=== PATIENT | male | born 1980 | race Caucasian/White ===

== ENCOUNTER 2016-11-07 14:05 | Observation (INO) | payer OTHER ==
[~2016-11-07] VITALS: Ht 182.9 cm; Wt 99.5 kg
[~2016-11-07 14:05] MED LIST: LACTATED RINGER'S 1000 ML INJ 1,000 ML IV ONE; ONDANSETRON HCL 4 MG/2 ML VIAL IV PUSH ONE; PROPOFOL 200 MG/20 ML AMP IV ONE
[2016-11-07 14:14] VITALS: BP 160/93; PULSE 72; RESP 18; TEMP 98.5; O2SAT 97
--- NOTE | 2016-11-07 15:08 | PD ---
HPI Chief Complaint: Laceration/Skin Injury Time Seen by Provider: 15:04 Travel History International Travel<30 days: No Contact w/Intl Traveler<30days: No Traveled to known affect area: No History of Present Illness HPI 35-year-old male presents to the emergency department complaint of a laceration to his right index finger. Laceration was obtained from a clean knife right out of the box. He is not up-to-date on his tetanus vaccination. Reports paresthesias to the right second digit. Denies loss of sensation. Reports decreased range of motion; Says he cannot move his finger at all. Has not taken any medications or tried any treatments to alleviate his symptoms. Applied pressure to control bleeding. Denies fever, chills, nausea, vomiting. Denies significant past medical history. Allergies to cortisone. No other modifying factors or associated signs and symptoms. PFSH Past Medical History Medical History: Denies Significant Hx Tetanus Vaccination: Unknown Influenza Vaccination: No Past Surgical History Surgical History: No Previous Surgery Social History Alcohol Use: Yes (WEEKENDS) Tobacco Use: No Substance Use: No Allergies-Medications (Allergen,Severity, Reaction): Coded Allergies: Cortisone (Verified Adverse Reaction, Severe, SWELLING, 11/07/16) Reported Meds & Prescriptions Reported Meds & Active Scripts Active No Active Prescriptions or Reported Medications Review of Systems Except as stated in HPI: all other systems reviewed are Neg Physical Exam Narrative GENERAL: Well-nourished, well-developed male patient, in no acute distress SKIN: Warm and dry. Approximately 1.5 cm laceration to the lateral aspect of the left second digit just above the MCP joint; finger without active range of motion; without opposition; less than 3 second cap refill; finger pink and warm to touch; sensory intact. Left upper extremity is supple and non-tense with 2+ radial pulses and sensory intact and without erythema or edema. HEAD: Atraumatic. Normocephalic. EYES: Pupils equal and round. No scleral icterus. No injection or drainage. ENT: Mucosa pink and moist. Airway patent. NECK: Trachea midline. CARDIOVASCULAR: Regular rate. RESPIRATORY: No accessory muscle use. GASTROINTESTINAL: Flat. MUSCULOSKELETAL: No obvious deformities. No clubbing. No cyanosis. No edema. NEUROLOGICAL: Awake and alert. Oriented 3. No obvious cranial nerve deficits. Motor grossly within normal limits. Normal speech. PSYCHIATRIC: Appropriate mood and affect; insight and judgment normal. Data Data Last Documented VS Vital Signs Date Time Temp Pulse Resp B/P Pulse Ox O2 Delivery O2 Flow Rate FiO2 11/07/16 17:01 65 18 154/83 100 Room Air 11/07/16 14:14 98.5 Orders Finger ([id number]) (11/07/16 ) Bupivacaine Pf 0.5% Inj (Marcaine Pf 0.5 (11/07/16 15:15) Lidocaine 1% Inj (50 Ml) (Xylocaine 1% I (11/07/16 15:15) Tetanus/Diphtheria Tox Adult (Tetanus/Di (11/07/16 15:15) Basic Metabolic Panel (Bmp) (11/07/16 16:45) Complete Blood Count With Diff (11/07/16 16:45) Iv Access Insert/Monitor (11/07/16 16:45) NPO (11/07/16 16:45) Chest, Single Ap (11/07/16 16:45) Consult Hand Surgery (11/07/16 ) Sodium Chlor 0.9% 1000 Ml Inj (Ns 1000 M (11/07/16 16:54) Admit Order (Ed Use Only) (11/07/16 17:01) Labs Laboratory Tests Test 11/07/16 16:50 White Blood Count 7.9 TH/MM3 Red Blood Count 4.85 MIL/MM3 Hemoglobin 14.8 GM/DL Hematocrit 44.0 % Mean Corpuscular Volume 90.6 FL Mean Corpuscular Hemoglobin 30.4 PG Mean Corpuscular Hemoglobin 33.6 % Concent Red Cell Distribution Width 12.3 % Platelet Count 205 TH/MM3 Mean Platelet Volume 9.1 FL Neutrophils (%) (Auto) 81.0 % Lymphocytes (%) (Auto) 11.8 % Monocytes (%) (Auto) 6.1 % Eosinophils (%) (Auto) 0.6 % Basophils (%) (Auto) 0.5 % Neutrophils # (Auto) 6.4 TH/MM3 Lymphocytes # (Auto) 0.9 TH/MM3 Monocytes # (Auto) 0.5 TH/MM3 Eosinophils # (Auto) 0.0 TH/MM3 Basophils # (Auto) 0.0 TH/MM3 CBC Comment DIFF FINAL Differential Comment Sodium Level 142 MEQ/L Potassium Level 4.1 MEQ/L Chloride Level 106 MEQ/L Carbon Dioxide Level 27.3 MEQ/L Anion Gap 9 MEQ/L Blood Urea Nitrogen 18 MG/DL Creatinine 0.98 MG/DL Estimat Glomerular Filtration 88 ML/MIN Rate Random Glucose 95 MG/DL Calcium Level 8.9 MG/DL [facility] Medical Decision Making Medical Screen Exam Complete: Yes Emergency Medical Condition: Yes Medical Record Reviewed: Yes Differential Diagnosis Laceration, contusion, abrasion Narrative Course 35-year-old male with left second digit laceration just above the MCP joint obtained from a clean knife. Tetanus updated in the ER. The fingers without active range of motion or opposition. Left second finger x-ray ordered. 1623: Left second finger x-ray with no acute findings. Call placed to hand surgeon. 1645: I spoke with Dr. Sawyer, hand surgeon, and she recommended for the patient to be transferred to the main hospital for OR secondary to possible flexor tendon laceration. CBC, BMP ordered. Chest x-ray for preop ordered. IV started with normal saline at KVO ordered. Patient will be transferred to the main hospital. 1702: I spoke with Dr. Beckham and the patient will be admitted to Dr. Rao. Report given. Physician Communication Physician Communication Dr. Sawyer, hand surgeon Dr. Beckham, [facility] Diagnosis Primary Impression: Laceration of left index finger with complication Admitting Information Admitting Physician Requests: Observation Scripts No Active Prescriptions or Reported Meds Yumiko Crow Nov 07, 2016 15:08 Yumiko Crow Nov 07, 2016 15:08
[2016-11-07] MEDS ORDERED: TETANUS/DIPHTHERIA TOXOID ADULT 0.5 ML VIAL IM ONE (15:15)
[2016-11-07] MEDS ORDERED: BUPIVACAINE HCL PF 0.5% 10 ML VIAL INFIL ONE (15:15)
[2016-11-07] MEDS ORDERED: LIDOCAINE HCL 1% 50 ML VIAL INFIL ONE (15:15)
--- NOTE | 2016-11-07 16:16 | RADHPO ---
EXAM DATE/TIME: 11/07/2016 15:47 [facility] COMPARISON: No previous studies available for comparison. INDICATIONS : Injury to hand from knife. MEDICAL HISTORY : None. SURGICAL HISTORY : None. ENCOUNTER: Initial ACUITY: 1 day PAIN SCORE: 5/10 LOCATION: Right base of second digit. FINDINGS: Soft tissue swelling with a few scattered bubbles of gas seen of the pointer finger and second webspa ce. No radiopaque foreign body. Bones are intact and normally aligned. CONCLUSION: Soft tissue injury. No bony abnormality demonstrated. Eugenio Haro MD on November 07, 2016 at 16:14 Board Certified Radiologist. This report was verified electronically.
[2016-11-07] MEDS: SODIUM CHLOR 0.9% 1000 ML INJ 1,000 ML IV SCH (16:54)
[2016-11-07 17:01] VITALS: BP 154/83; PULSE 65; RESP 18; O2SAT 100
[2016-11-07 17:06] LABS: AUTOMATED NEUTROPHIL # 6.4 TH/MM3 (1.8-7.7); BASOPHIL % 0.5 % (0.0-2.0); EOSINOPHIL % 0.6 % (0.0-4.0); HEMO FLAGS DIFF FINAL; LYMPH % 11.8 % (9.0-44.0); LYMPHOCYTE # 0.9 TH/MM3 (1.0-4.8); MEAN CELL VOLUME 90.6 FL (80.0-100.0); MEAN CORPUSCULAR HEMOGLOBIN 30.4 PG (27.0-34.0); MEAN CORPUSCULAR HGB CONC 33.6 % (32.0-36.0); MONO % 6.1 % (0.0-8.0); PLATELET COUNT 205 TH/MM3 (150-450); RED BLOOD COUNT 4.85 MIL/MM3 (4.50-5.90); RED CELL DISTRIBUTION WIDTH 12.3 % (11.6-17.2); WHITE BLOOD COUNT 7.9 TH/MM3 (4.0-11.0)
[2016-11-07 17:14] LABS: POTASSIUM 4.1 MEQ/L (3.5-5.1)
[2016-11-07 17:17] LABS: BICARBONATE 27.3 MEQ/L (21.0-32.0)
--- NOTE | 2016-11-07 17:25 | HHI.HP ---
HPI Service CP Hospitalists Primary Care Physician No Primary Care Physician Admission Diagnosis LEFT INDEX FINGER LACERATION Chief Complaint: left finger laceration from knife Travel History International Travel<30 Days: No Contact w/Intl Traveler <30 Da: No Traveled to Known Affected Are: No History of Present Illness 35-year-old male with left second digit laceration just above the MCP joint obtained from a clean knife. Tetanus updated in the ER. The fingers without active range of motion or opposition. Orthopedic hand wants patient to OR tonight for possible flexor tendon rupture. Patient has no significant past medical history. Review of Systems Musculoskeletal: COMPLAINS OF: Joint pain Past Family Social History Past Medical History none Past Surgical History none Reported Medications none Allergies: Coded Allergies: Cortisone (Verified Adverse Reaction, Severe, SWELLING, 11/07/16) Family History grandfather hypertension Social History NS,ND Physical Exam Vital Signs Vital Signs Date Time Temp Pulse Resp B/P Pulse Ox O2 Delivery O2 Flow Rate FiO2 11/07/16 17:01 65 18 154/83 100 Room Air 11/07/16 14:14 98.5 72 18 160/93 97 Physical Exam GENERAL: This is a well-nourished, well-developed patient, in no apparent distress. SKIN: No rashes, ecchymoses or lesions. Cool and dry. HEAD: Atraumatic. Normocephalic. No temporal or scalp tenderness. EYES: Pupils equal round and reactive. Extraocular motions intact. No scleral icterus. No injection or drainage. ENT: Nose without bleeding, purulent drainage or septal hematoma. Throat without erythema, tonsillar hypertrophy or exudate. Uvula midline. Airway patent. NECK: Trachea midline. No JVD or lymphadenopathy. Supple, nontender, no meningeal signs. CARDIOVASCULAR: Regular rate and rhythm without murmurs, gallops, or rubs. RESPIRATORY: Clear to auscultation. Breath sounds equal bilaterally. No wheezes , rales, or rhonchi. GASTROINTESTINAL: Abdomen soft, non-tender, nondistended. No hepato-splenomegaly , or palpable masses. No guarding. MUSCULOSKELETAL: Extremities without clubbing, cyanosis, or edema.. No joint tenderness, effusion, or edema noted. NEUROLOGICAL: Awake and alert. Cranial nerves II through XII intact. Motor and sensory grossly within normal limits. Five out of 5 muscle strength in all muscle groups. Normal speech. left hand- Approximately 1.5 cm laceration to the lateral aspect of the left second digit just above the MCP joint; finger without active range of motion; without opposition; less than 3 second cap refill; sensory intact. Left upper extremity is supple and non-tense with 2+ radial pulses and sensory intact and without erythema or edema Laboratory Laboratory Tests Test 11/07/16 16:50 White Blood Count 7.9 Red Blood Count 4.85 Hemoglobin 14.8 Hematocrit 44.0 Mean Corpuscular Volume 90.6 Mean Corpuscular Hemoglobin 30.4 Mean Corpuscular Hemoglobin 33.6 Concent Red Cell Distribution Width 12.3 Platelet Count 205 Mean Platelet Volume 9.1 Neutrophils (%) (Auto) 81.0 Lymphocytes (%) (Auto) 11.8 Monocytes (%) (Auto) 6.1 Eosinophils (%) (Auto) 0.6 Basophils (%) (Auto) 0.5 Neutrophils # (Auto) 6.4 Lymphocytes # (Auto) 0.9 Monocytes # (Auto) 0.5 Eosinophils # (Auto) 0.0 Basophils # (Auto) 0.0 CBC Comment DIFF FINAL Differential Comment Sodium Level 142 Potassium Level 4.1 Chloride Level 106 Carbon Dioxide Level 27.3 Anion Gap 9 Blood Urea Nitrogen 18 Random Glucose 95 Calcium Level 8.9 Result Diagram: 11/07/16 1650 11/07/161649 Assessment and Plan Problem List: (1) Laceration of left index finger with complication Status: Acute Plan: to or with plan as per orthopedic hand surgeon Assessment and Plan as above Code Status full Discussed Condition With patient Cristofer Beckham MD Nov 07, 2016 17:25
[2016-11-07] MEDS ORDERED: ceFAZolin 2 GM PREMIX 50 ML IV ONE (17:30)
[2016-11-07] MEDS ORDERED: ONDANSETRON HCL 4 MG/2 ML VIAL IVP PRN (17:30)
[2016-11-07] MEDS ORDERED: NALOXONE HCL 0.4 MG/ML AMP IV PRN (17:30)
[2016-11-07] MEDS ORDERED: SODIUM CHLORIDE 0.9% FLUSH 5 ML FLUSH FLUSH PRN (17:30)
--- NOTE | 2016-11-07 17:38 | RADHPO ---
EXAM DATE/TIME: 11/07/2016 17:24 [facility] COMPARISON: No previous studies available for comparison. INDICATIONS : Evaluate for pneumonia, pneumothorax or communicable disease. Pre-op hand surgery 11/07/2016. MEDICAL HISTORY : None. SURGICAL HISTORY : None. ENCOUNTER: Initial ACUITY: 1 day PAIN SCORE: 0/10 LOCATION: Bilateral chest FINDINGS: A single view of the chest demonstrates the lungs to be symmetrically aerated without evidence of mas s, infiltrate or effusion. The cardiomediastinal contours are unremarkable. Osseous structures are intact. CONCLUSION: No evidence of acute cardiopulmonary disease. Eugenio Haro MD on November 07, 2016 at 17:36 Board Certified Radiologist. This report was verified electronically.
[2016-11-07 17:43] VITALS: BP 152/82; PULSE 74; RESP 18; O2SAT 100
[2016-11-07 18:20] VITALS: PULSE 59
[2016-11-07] MEDS ORDERED: NEOMYCIN/POLYMYXIN 1 ML G.U. IRRIGANT IR ONE (19:13)
[2016-11-07] MEDS ORDERED: LIDOCAINE HCL 2% 50 ML VIAL INFIL ONE (19:13)
[2016-11-07] MEDS ORDERED: MIDAZOLAM HCL 2 MG/2 ML VIAL ONE (20:06)
[2016-11-07] MEDS ORDERED: fentaNYL CITRATE 250 MCG/5 ML AMP ONE ×2 (20:07→22:32)
[2016-11-07] MEDS: SODIUM CHLORIDE 0.9% FLUSH 5 ML FLUSH FLUSH SCH (21:00)
[2016-11-07] MEDS ORDERED: ceFAZolin INJ 1,000 MG VIAL IV ONE (22:25)
[2016-11-07] MEDS ORDERED: DO NOT ADM ANY ANTICOAGULANT DRUGS XX PRN (23:45)
[2016-11-08] MEDS: SODIUM CHLOR 0.9% 1000 ML INJ 1,000 ML IV SCH (00:17)
[2016-11-08 01:00] VITALS: BP 151/85; PULSE 77; RESP 18; TEMP 97.4; O2SAT 97
[2016-11-08] MEDS: HYDROmorphone HCL PF 1 MG/ML VIAL IV PRN ×4 (01:17→11:25)
--- NOTE | 2016-11-08 01:21 | PD.ORT.PN ---
Subjective Subjective Remarks pain controlled Objective Vitals Vital Signs Date Time Temp Pulse Resp B/P Pulse Ox O2 Delivery O2 Flow Rate FiO2 11/08/16 01:00 97.4 77 18 151/85 97 11/08/16 00:30 98.4 80 17 131/93 98 Nasal Cannula 3 11/08/16 00:15 74 17 148/89 97 Nasal Cannula 3 11/08/16 00:00 82 11 143/88 97 Nasal Cannula 3 11/07/16 23:45 84 10 137/79 99 Simple Mask 10 11/07/16 23:41 98.5 79 10 149/74 98 Simple Mask 10 11/07/16 18:30 61 14 143/88 97 11/07/16 18:20 59 11/07/16 18:20 98.8 59 14 152/82 97 11/07/16 17:43 74 18 152/82 100 Room Air 11/07/16 17:01 65 18 154/83 100 Room Air 11/07/16 14:14 98.5 72 18 160/93 97 I/O 11/07/16 11/07/16 11/07/16 11/08/16 11/08/16 11/08/16 07:00 15:00 23:00 07:00 15:00 23:00 Intake Total 1460 ml Output Total 450 ml Balance 1010 ml Intake Oral 60 ml IV Total 100 ml Other 1300 ml Output Urine Total 400 ml Estimated Blood Loss 50 ml Other 0 ml # Bowel Movements 0 Result Diagram: 11/07/16 1650 11/07/16 1650 Imaging Last 24 hours Impressions Chest X-Ray 11/07/16 1645 Signed Impressions: Service Date/Time: Monday, November 07, 2016 17:24 - CONCLUSION: No evidence of acute cardiopulmonary disease. Eugenio Haro MD Objective Remarks splint in place, <2 sec capillary refill to finger, able to wiggle finger Assessment & Plan Assessment and Plan POD0 s/p I&D left index finger, repair fdp and fds flexor tendons as well as A2 evelia, repair radial digital nerve left index finger -NWB left hand, keep splint in place until followup, elevate hand -Ok to d/c per hand surgery, call office tue morning for appointment arthur or michael in conjunction with hand therapy -dc with pain meds and antibiotics Sumi Sawyer MD Nov 08, 2016 01:21
[2016-11-08 04:00] VITALS: BP 135/86; PULSE 80; RESP 18; TEMP 97.5; O2SAT 98
[2016-11-08 05:35] VITALS: O2SAT 94
[2016-11-08 07:56] VITALS: O2SAT 94
[2016-11-08 08:00] VITALS: BP 132/83; PULSE 58; RESP 20; TEMP 96.6; O2SAT 97
--- NOTE | 2016-11-08 08:32 | MB ---
cc: CAN VENGEAS DATE OF CONSULTATION: 11/07/2016 REASON FOR CONSULTATION Flexor tendon injury and digital nerve injury, left index finger. 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 He states he was at a local store examining some bait when a clean knife slipped and lacerated the volar aspect of the left index finger over the volar aspect of the proximal phalanx. He was seen at [facility] emergency room, was noted to have no flexion of the finger except at the MP joint and paresthesias on the radial aspect of the index finger and I requested transfer to the main hospital for likely surgical intervention. The patient states he has had no prior injuries to the left hand. He is otherwise healthy. PAST MEDICAL HISTORY Denies. PAST SURGICAL HISTORY Denies. SOCIAL HISTORY Social alcohol use. Denies tobacco or drug use. ALLERGIES CORTISONE. MEDICATIONS Denies. PHYSICAL EXAMINATION Exam of the left hand shows approximately a 2 cm laceration just distal to the MP joint at the level of the proximal phalanx on the radial side. On exam the patient has less than 2-second capillary refill to the finger. He has absent sensation on the radial aspect of the digit, sensation intact on the ulnar aspect of the digits. The patient has no flexion at the DIP or PIP joint. He has crepitus over the proximal phalanx. IMAGING STUDIES X-rays of the left index finger shows no evidence of fracture or dislocation. ASSESSMENT/PLAN 35-year-old right-hand dominant male with likely complete laceration of the flexor digitorum profundus and the flexor digitorum superficialis as well as radial digital nerve. At this time I recommended taking the patient to the operating room for emergent exploration, repair of any injured structures and he elected to proceed. It was discussed with the patient the long recovery after flexor tendon injury including specific rehabilitation protocol that must be followed to prevent tendon rupture. He understands there is a high risk for stiffness and lack of full flexion, extension of the finger as well as persistent paresthesias. Other risks were explained to include but not limited to wound complications, infection and stiffness, paresthesias, need for additional surgeries, rupture of the tendon and he elected to proceed. MD CATY Arambula/TLL /1:09 AM /8:19 AM MTDVerena
[2016-11-08] MEDS: SODIUM CHLORIDE 0.9% FLUSH 5 ML FLUSH FLUSH SCH (11:25)
[2016-11-08] MEDS ORDERED: ACETAMINOPHEN/HYDROcodone 325 MG/5 MG TAB PO PRN (11:45)
[2016-11-08 12:00] VITALS: BP 136/75; PULSE 54; RESP 18; TEMP 97; O2SAT 97
[2016-11-08] MEDS ORDERED: HYDR-3516 PO (12:47)
[2016-11-08] MEDS ORDERED: AUGM875T PO (12:47)
--- NOTE | 2016-11-08 12:51 | HHI.PR ---
Subjective Remarks No new complaints. Pt is eager for discharge. Objective Vitals Vital Signs Date Time Temp Pulse Resp B/P Pulse Ox O2 Delivery O2 Flow Rate FiO2 11/08/16 08:00 96.6 58 20 132/83 97 11/08/16 07:56 94 21 11/08/16 05:35 94 21 11/08/16 05:18 16 11/08/16 04:00 97.5 80 18 135/86 98 11/08/16 01:00 97.4 77 18 151/85 97 11/08/16 00:30 98.4 80 17 131/93 98 Nasal Cannula 3 11/08/16 00:15 74 17 148/89 97 Nasal Cannula 3 11/08/16 00:00 82 11 143/88 97 Nasal Cannula 3 11/07/16 23:45 84 10 137/79 99 Simple Mask 10 11/07/16 23:41 98.5 79 10 149/74 98 Simple Mask 10 11/07/16 18:30 61 14 143/88 97 11/07/16 18:20 59 11/07/16 18:20 98.8 59 14 152/82 97 11/07/16 17:43 74 18 152/82 100 Room Air 11/07/16 17:01 65 18 154/83 100 Room Air 11/07/16 14:14 98.5 72 18 160/93 97 11/07/16 11/07/16 11/08/16 15:00 23:00 07:00 Intake Total 1700 ml Output Total 450 ml Balance 1250 ml Intake Oral 300 ml IV Total 100 ml Other 1300 ml Output Urine Total 400 ml Estimated Blood Loss 50 ml Other 0 ml # Voids 1 # Bowel Movements 0 Result Diagram: 11/07/16 1650 11/07/16 1650 Imaging Last Impressions Chest X-Ray 11/07/16 1645 Signed Impressions: Service Date/Time: Monday, November 07, 2016 17:24 - CONCLUSION: No evidence of acute cardiopulmonary disease. Eugenio Haro MD Finger X-Ray 11/07/16 0000 Signed Impressions: Service Date/Time: Monday, November 07, 2016 15:47 - CONCLUSION: Soft tissue injury. No bony abnormality demonstrated. Eugenio Haro MD Objective Remarks GENERAL: This is a well-nourished, well-developed patient, in no apparent distress. CARDIOVASCULAR: Regular rate and rhythm without murmurs, gallops, or rubs. RESPIRATORY: Clear to auscultation. Breath sounds equal bilaterally. No wheezes , rales, or rhonchi. GASTROINTESTINAL: Abdomen soft, non-tender, nondistended. Normal active bowel sounds MUSCULOSKELETAL: left hand is bandaged, c/d/i NEURO: Alert & Oriented x4 to person, place, time, situation. Moves all ext x4 A/P Problem List: (1) Laceration of left index finger with complication Status: Acute Plan: - pt underwent surgical repair of left index finger by Dr. Sumi Sawyer - I&D - repair of flexor tendons - repair of A2 evelia - repair of radial digit nerve - pt to f/u with Dr. Sawyer 11/09/16 - augmentin BID x 5d - norco prn - see discharge orders Deshaun Rao DO Nov 08, 2016 12:51
--- NOTE | 2016-11-08 13:01 | HHI.DCPOC ---
Discharge Care Plan Diagnosis: (1) Laceration of left index finger with complication Goals to Promote Your Health * To prevent worsening of your condition and complications * To maintain your health at the optimal level Directions to Meet Your Goals Take your medications as prescribed Follow your dietary instruction Follow activity as directed Keep your appointments as scheduled Take your immunizations and boosters as scheduled If your symptoms worsen call your PCP, if no PCP go to Urgent Care Center or Emergency Room Smoking is Dangerous to Your Health. Avoid second hand smoke Call the 24-hour hour crisis hotline for domestic abuse at Deshaun Rao DO Nov 08, 2016 13:01
--- NOTE | 2016-11-08 14:38 | MP ---
cc: SUMI SAWYER DATE OF SURGERY: 11/07/2016 PREOPERATIVE DIAGNOSIS Open laceration volar aspect left index finger with likely injury to flexor tendon as well as digital nerve. POSTOPERATIVE DIAGNOSIS 1. Open laceration left index finger with complete laceration of flexor digitorum profundus and flexor digitorum superficialis. 2. Laceration of the radial digital nerve, left index finger. PROCEDURE 1. Irrigation and debridement open wound including skin, subcutaneous tissue and muscle, left index finger. 2. Repair of flexor digitorum superficialis zone 2. 3. Repair of flexor digitorum profundus zone 2. 4. Repair of A2 evelia, left index finger. 5. Repair of radial digital nerve left index finger with a nerve conduit. SURGEON Dr. Sumi Sawyer ANESTHESIA General and local. TOURNIQUET TIME Two hours at 250 mmHg. IMPLANTS AxoGen 2 mm nerve tube. AxoGen 5 mm nerve tube. INDICATIONS FOR PROCEDURE Sean Garcia is a pleasant 35-year-old right-hand dominant male who sustained an injury to the volar aspect of the left index finger earlier today with a knife. On exam he had likely complete laceration of both flexor tendons as well as the radial digital nerve. He elected to proceed with the surgical intervention. The risks were explained to include but not limited to wound complications, infection, stiffness, paresthesias, need for additional surgeries, tendon rupture, and he elected to proceed. DESCRIPTION OF PROCEDURE The patient was identified in the preoperative holding area and the correct extremity was marked. The patient was taken to the operating room where anesthesia was induced. The left upper extremity was prepped and draped in a normal sterile fashion. The tourniquet was inflated to 250 mmHg for 2 hours. Approximately 20 cc of 2% lidocaine without epinephrine was used to perform a digital block over the finger. The laceration over the proximal phalanx was extended in a Gabe fashion proximally and distally. There was significant soft tissue damage upon making the incision there was no gross contamination. The wound was irrigated with three liters of antibiotic saline. The digital nerves and arteries were inspected. The ulnar digital nerve was intact. There was complete laceration of the radial digital nerve. This was repaired with a 2 mm AxoGen nerve conduit due to a gap and also repaired with 8-0 nylon. Attention was then turned to the flexor tendons. There was noted to be complete laceration of the flexor digitorum profundus and flexor digitorum superficialis at the level of the A2 evelia as well as partial laceration to the A2 evelia. Both the flexor digitorum superficialis and flexor digitorum profundus were repaired with 4-0 FiberWire with a four strand repair using a Sher stitch and then with a 6-0 epitendinous repair with nylon on both tendons. The A2 evelia was also injured and this was repaired with 6-0 Prolene. The repair was catching slightly on the A2 evelia due to the damage to the A2 evelia. The decision was made to place a 5mm nerve tube around each tendon to improve the gliding. This was sutured into place with 5-0 PDS. This improved the gliding of the tendon, although the repair being in zone 2 was slightly tight. The A1 evelia was released. The patient had excellent tenodesis following the repair. The tourniquet was released. Hemostasis was obtained. The patient had less than two-second capillary refill to the finger. The wound was closed with chromic. The patient was placed into a dorsal blocking splint. He will remain overnight for IV antibiotics. He will be discharged the following day and will follow-up in the office for intensive hand therapy. He understands he may not be able to make a full fist due to the zone 2 repair, but hopefully once the swelling resolves he will have adequate range of motion of the finger. MD CATY Arambula/BARBIE /1:12 AM /2:16 PM [facility]
[2016-11-09] MEDS ORDERED: INFLUENZA VIRUS VACCINE (QUADRIVALENT) 0.5 ML SYR IM ONE (10:00)
== END 2016-11-08 15:39 | disposition home or self-care (01) ==
LOC: PHEFT 14:05 → PHEDA 17:03 → HPAC 19:02 → HOCA 11-08 00:39
PROVIDERS: ADMIT Hospitalist; ATTEND Hospitalist
DX: S61.211A Laceration without foreign body of left index finger without damage to nail, initial encounter (principal); W26.0XXA Contact with knife, initial encounter; Y93.89 Activity, other specified; Y92.512 Supermarket, store or market as the place of occurrence of the external cause; Z23 Encounter for immunization
CPT/HCPCS: 01810; 11043; 12001; 26356; 64910; 71010; 73140; 80048; 85025; 90471; 90714; 99285; C9353; G0378; J0690; J1170; J2250; J2405; J3010; J7030; J7120